=== PATIENT | female | born 1990 | race Caucasian/White ===

== ENCOUNTER 2021-11-20 15:50 | Emergency (ER) | payer OTHER, SELFPAY ==
--- NOTE | ~2021-11-20 | US_ITS ---
EXAMINATION: US PELVIS CLINICAL INFORMATION: Pelvic pain COMPARISON: CT abdomen/pelvis dated 11/20/2021 TECHNIQUE: Ultrasound of the pelvis is performed using both transabdominal and transvaginal transducers along with Doppler. Transvaginal imaging is performed due to inadequate visualization transabdominally. FINDINGS: Uterus: The uterus is anteverted and measures 7.7 x 4.3 x 5.5 cm. IUD present within the uterus. No significant endometrial thickening The uterus is smooth in contour and has normal myometrial echogenicity. No visible fibroid. Nabothian cysts present within the cervix. Adnexa: Both ovaries are visualized. There is normal color flow to the adnexa. There is no ovarian torsion. There is no pelvic ascites or fluid collection. Normal arterial and venous waveforms present within both ovaries. Right ovary measures 3.7 x 2.1 x 3.4 cm. Left ovary measures 2.6 x 2.4 x 4.1 cm. Physiologic follicles present within the left ovary. US/US pelvic and transvaginal IMPRESSION: No acute findings within the pelvis.
--- NOTE | ~2021-11-20 | US_ITS ---
EXAMINATION: US PELVIS CLINICAL INFORMATION: Pelvic pain COMPARISON: CT abdomen/pelvis dated 11/20/2021 TECHNIQUE: Ultrasound of the pelvis is performed using both transabdominal and transvaginal transducers along with Doppler. Transvaginal imaging is performed due to inadequate visualization transabdominally. FINDINGS: Uterus: The uterus is anteverted and measures 7.7 x 4.3 x 5.5 cm. IUD present within the uterus. No significant endometrial thickening The uterus is smooth in contour and has normal myometrial echogenicity. No visible fibroid. Nabothian cysts present within the cervix. Adnexa: Both ovaries are visualized. There is normal color flow to the adnexa. There is no ovarian torsion. There is no pelvic ascites or fluid collection. Normal arterial and venous waveforms present within both ovaries. Right ovary measures 3.7 x 2.1 x 3.4 cm. Left ovary measures 2.6 x 2.4 x 4.1 cm. Physiologic follicles present within the left ovary. US/US pelvic ovarian doppler IMPRESSION: No acute findings within the pelvis.
--- NOTE | ~2021-11-20 | CT_ITS ---
EXAMINATION: CT ABDOMEN AND PELVIS WITHOUT CONTRAST CLINICAL INFORMATION: Lower abdominal pain COMPARISON: None TECHNIQUE: Multidetector volumetric imaging was performed from the superior aspect of the liver through the pubic symphysis. Sagittal and coronal reformatted images were obtained on the technologist's workstation. This CT examination was performed using dose optimization techniques as appropriate, variously including the following: *Automated exposure control *Adjustment of mA and/or kV according to patient size (this includes techniques or standardized protocols for targeted exams where dose is matched to indication/reason for exam; i.e. extremities or head) *Use of iterative reconstruction technique DLP: 632 mGy-cm FINDINGS: LUNG BASES: The visualized lung bases are unremarkable. LIVER, GALLBLADDER, AND BILIARY TREE: The liver is normal in size, shape, and attenuation. No focal hepatic lesion or biliary ductal dilatation is present. The gallbladder is unremarkable with no evidence of radiopaque gallstones, gallbladder wall thickening, or obvious pericholecystic inflammatory changes. PANCREAS: Unremarkable. SPLEEN: Unremarkable. ADRENAL GLANDS: Unremarkable. KIDNEYS AND URETERS: Mild fullness of the right renal collecting system. No significant hydronephrosis. No radiodense urinary tract calculi. No renal lesions or perinephric stranding. BLADDER: Unremarkable. GASTROINTESTINAL TRACT: No dilated bowel loops. No bowel wall thickening. Appendix is not discretely visualized. No appreciable inflammatory changes at the cecal base to suggest indirect evidence of appendicitis. No ascites or free air. ABDOMINAL WALL: No significant hernia is appreciated. LYMPH NODES: No lymphadenopathy. VASCULAR: Unremarkable. PELVIC VISCERA: IUD is present in the uterus. Gynecologic structures otherwise grossly unremarkable. Trace free pelvic fluid, within the physiologic range. 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 Partially lumbarized S1 segment also noted. No fracture or suspicious osseous lesion. CT/CT abdomen pelvis wo con IMPRESSION: 1. No acute intra-abdominal process identified to explain the patient's lower abdominal pain. 2. Appendix is not discretely visualized. No inflammatory changes at the cecal base to suggest indirect evidence of acute appendicitis.
[2021-11-20 16:54] VITALS: BP 128/85; PULSE 82; RESP 20; TEMP 36.9; O2SAT 98; BMI 32.2
[2021-11-20 17:51] LABS: MANUAL DIFF FLAG NO
[2021-11-20 17:52] LABS: Basophils Percent Auto 0.4 % (0-2); Eosinophils Absolute Auto 0.2 X10*3/uL (0.0-0.4); Eosinophils Percent Auto 1.8 % (0-4); Hematocrit 36.9 % (37.0-47.0); Hemoglobin 12.5 g/dl (12.0-16.0); Imm Gran Abs Auto 0.05 X10*3/uL (0.00-0.03); Imm Gran Pct Auto 0.5 % (0.0-0.4); Lymphocytes Absolute Auto 1.3 X10*3/uL (1.2-4.9); Lymphocytes Percent Auto 11.4 % (20-40); Mean Corpuscular HGB Conc 33.9 g/dl (31.0-35.0); Mean Corpuscular Hemoglobin 28.2 pg (27.0-33.0); Mean Corpuscular Volume 83.3 fL (80.0-98.0); Monocytes Absolute Auto 0.8 X10*3/uL (0.1-1.2); Monocytes Percent Auto 7.2 % (2-11); Neutrophils Absolute Auto 8.7 x10*3/uL (2.0-8.3); Neutrophils Percent Auto 78.7 % (45-73); Platelet Count 259 X10*3/uL (160-400); Red Blood Count 4.43 X10*6/uL (4.20-5.50); Red Cell Distribution Width 12.6 % (11.0-16.0); White Blood Count 11.1 X10*3/uL (4.8-10.8)
[2021-11-20 18:23] LABS: Alanine Aminotransferase 20 U/L (0-31); Albumin Level 4.4 g/dL (3.5-5.0); Alkaline Phosphatase 72 U/L (39-117); Anion Gap 13 (12-20); Aspartate Amino Transferase 16 U/L (5-31); Bilirubin Total 0.9 mg/dL (0.0-1.0); Blood Urea Nitrogen 14 mg/dL (9-16); Calcium 9.3 mg/dL (8.4-10.2); Carbon Dioxide 21 mmol/L (22-29); Chloride 104 mmol/L (96-108); Estimated Glomerular Filt Rate > 60; Glucose Random 108 mg/dL (60-115); Potassium 3.7 mmol/L (3.3-5.1); Sodium 134 mmol/L (135-145); Total Protein 7.3 g/dL (6.5-8.0)
--- NOTE | 2021-11-20 19:24 | ED.ABDPAIN ---
HPI - Abdominal Pain General Chief Complaint: Abdominal Pain Stated Complaint: abdominal pain Time Seen by Provider: 11/20/21 19:24 Source: patient Mode of arrival: ambulatory Limitations: no limitations History of Present Illness HPI narrative: This is a 31 year old female presents to the emergency department with complaints of abdominal pain,nausea, chills,anorexia since 0600. Patient reports that the abdominal pain initially was in the epigastric region and has radiated down to her lower abdomen, she reports it is very tender with palpation, movement, she describes the pain as sharp, severe and constant in nature. She tells me she has had little to no appetite. She tells me she has no history of abdominal surgeries. Patient still has her appendix and her gallbladder. Denies any changes in urination, bowel habits, chest pain, shortness of breath, fevers, vomiting, headache, dizziness, weakness. MD elicited complaint: abdominal pain Pertinent past history: none Onset (ago): hour(s) (13) Pain Consistency: constant Location: epigastric Severity: severe Pain scale (0-10): 10 Quality: stabbing and sharp Radiation: LLQ, RLQ and suprapubic Exacerbating factors: nothing Relieving factors: nothing Associated symptoms: nausea and chills Related Data Previous Rx's Medication Instructions Recorded ondansetron 4 mg disintegrating 4 mg PO ONCE PRN nausea and 11/21/21 tablet vomiting #10 tabs Allergies Allergy/AdvReac Type Severity Reaction Status Date / Time animal dander [ANIMAL HAIR] Allergy Unknown PUFFY EYES Verified 11/20/21 16:54 surgical lubricant Allergy Unknown RASH Verified 11/20/21 16:54 [From SURGILUBE] Vaginal Lubricant Allergy Unknown rash, itchy Uncoded 09/25/17 00:00 Review of Systems Review of Systems Constitutional : No Weight loss, No Fever, + Chills, No Fatigue, No Malaise ENT/Mouth : No sore throat, No Rhinorrhea Eyes: No Eye Pain, No Swelling, No Redness Cardiovascular : No Chest Pain, No SOB, No Dyspnea on Exertion, No Orthopnea, No Edema, No Palpitations Respiratory : No Cough, No Sputum, No Wheezing Gastrointestinal : + Nausea, No Vomiting, No Diarrhea, No Constipation, + abdominal Pain, No Hematochezia, No Melena Genitourinary : No Dysuria, No Urinary Frequency, No Hematuria, Musculoskeletal : No joint pain, No Myalgias, No Joint Swelling Skin : No Skin Lesions, No rash Neuro : No Weakness, No Numbness, No Dizziness, No Headache Psych : No Anxiety/Panic, No Depression All other systems reviewed and are negative Yes all other systems are reviewed and are negative [facility] Past Medical History Attestation statement: The following information was validated with the patient. Source: old records reviewed and nursing notes reviewed Social History Social History Advance Directives: No Advance Directives Information Provided: No Physical Exam ED Vital Signs: Vital Signs - 24 hr 11/20/21 16:54 Temperature 98.4 F Pulse Rate 82 Respiratory Rate 20 Blood Pressure 128/85 Pulse Oximetry 98 Oxygen Delivery Method Room Air BMI result Body Mass Index 32.2 vss Appearance: Alert.? Oriented X3.? No acute distress.? Head: Normocephalic, atraumatic, no step-offs or deformities Eyes: Pupils equal, round and reactive to light.? ENT: Pharynx normal.? Neck: Normal inspection.? Neck supple.? CVS: Normal heart rate and rhythm.? Pulses normal.? Respiratory: No respiratory distress.? Breath sounds normal.? Abdomen: Soft and + severe tenderness to lower abdomen. BS normal X4.? Skin: Skin warm and dry.? Normal skin color.? Normal skin turgor.? Extremities: No lower extremity edema.? No calf ttp. 5/5 strength to bilateral upper and lower extremities Neuro: Oriented X 3.? No motor deficit.? No sensory deficit. CN 2-12 intact Course Reevaluation(s) Reevaluation #1: CBC with slight leukocytosis. Chemistry with no acute findings. Lactic acid negative. UA without signs of infection. CT of the abdomen and pelvis with no acute intra-abdominal process is identified to explain patient's symptoms. Appendix is not discretely visualized, however no inflammatory changes at the cecal base to suggest indirect evidence of acute appendicitis. Time: 22:53 Reevaluation #2: Ultrasound with no acute findings. Patient now reporting thick white vaginal discharge which is abnormal for her. No suspicion for STDs, urine shows slightly. Will treat with fluconazole 150 mg p.o. now. Time: 00:30 Reevaluation #3: Upon re-evaluation patient is much less tender than before, she reports significant improvement, still some discomfort with palpation of abdomen throughout. Will give 0.5 of Dilaudid, ultrasound within normal limits, no signs of torsion. Low suspicion for appendicitis CRP not markedly elevated. I explained to patient if symptoms persist or worsen she should return for further evaluation. At this time patient reports to me that her pain has significantly improved and she feels well enough to go home. Educated her on worrisome signs and symptoms and when to return. I also discussed this case my attending who agrees with plan. At time of discharge patient tolerating p.o. fluids. Time: 00:58 MDM - Abdominal Pain MDM Narrative Medical decision making narrative: 1998 31-year-old female presenting with severe abdominal pain started in the epigastric region radiated to the lower abdomen since 06:00. Physical examination with his significantly tender abdomen , patient appears very uncomfortable. Plan at this time is to obtain lab work, imaging, urine. Will rule out appendicitis, cholecystitis, diverticulitis. History and physical examination was low suspicion for torsion. Medical Records Attestation: I reviewed the patient's medical records. Lab Data Attestation: I reviewed the patient's lab results. Result diagrams: 11/20/21 17:47 11/20/21 17:47 Labs: Lab Results 11/20/21 11/20/21 11/20/21 Range/Units 17:47 17:47 21:43 WBC 11.1 H (4.8-10.8) X10*3/uL RBC 4.43 (4.20-5.50) X10*6/uL Hgb 12.5 (12.0-16.0) g/dl Hct 36.9 L (37.0-47.0) % MCV 83.3 (80.0-98.0) fL MCH 28.2 (27.0-33.0) pg MCHC 33.9 (31.0-35.0) g/dl RDW 12.6 (11.0-16.0) % Plt Count 259 (160-400) X10*3/uL MPV 10.0 (9.4-12.3) fL Immature Gran % (Auto) 0.5 H (0.0-0.4) % Neut % (Auto) 78.7 H (45-73) % Lymph % (Auto) 11.4 L (20-40) % [place] % (Auto) 7.2 (2-11) % Eos % (Auto) 1.8 (0-4) % Baso % (Auto) 0.4 (0-2) % Lymph # (Auto) 1.3 (1.2-4.9) X10*3/uL [place] # (Auto) 0.8 (0.1-1.2) X10*3/uL Eos # (Auto) 0.2 (0.0-0.4) X10*3/uL Baso # (Auto) 0.0 (0.0-0.2) X10*3/uL Abs Immat Gran (auto) 0.05 H (0.00-0.03) X10*3/uL Absolute Neuts (auto) 8.7 H (2.0-8.3) x10*3/uL Absolute Nucleated RBC 0.000 (0.0-0.012) X10*3/uL Nucleated RBC % (auto) 0.0 (0.0-0.2) /100WBC Sodium 134 L (135-145) mmol/L Potassium 3.7 (3.3-5.1) mmol/L Chloride 104 (96-108) mmol/L Carbon Dioxide 21 L (22-29) mmol/L Anion Gap 13 (12-20) BUN 14 (9-16) mg/dL Creatinine 0.62 (0.5-1.4) mg/dL Estim Creat Clear Calc 121.0 Estimated GFR > 60 Random Glucose 108 (60-115) mg/dL Lactic Acid 0.7 (0.5-2.0) mmol/L Calcium 9.3 (8.4-10.2) mg/dL Total Bilirubin 0.9 (0.0-1.0) mg/dL AST 16 (5-31) U/L ALT 20 (0-31) U/L Alkaline Phosphatase 72 (39-117) U/L C-Reactive Protein 0.53 H (< or = 0.50) mg/dL Total Protein 7.3 (6.5-8.0) g/dL Albumin 4.4 (3.5-5.0) g/dL Beta HCG, Quant < 2 mIU/mL Urine Color Urine Appearance Urine pH (5.0-8.0) Ur Specific [place] (1.005-1.025) Urine Protein (NEG-TRACE) MG/DL Urine Glucose (UA) (NEG) MG/DL Urine Ketones (NEG) MG/DL Urine Blood (NEG) Urine Nitrite (NEG) Ur Leukocyte Esterase (NEG) Urine RBC (0) /HPF Urine WBC (0-4) /HPF Ur Squamous Epith Cells /LPF Calcium Oxalate Crystal /LPF Urine Bacteria /LPF Urine Yeast /HPF 11/20/21 Range/Units 21:51 WBC (4.8-10.8) X10*3/uL RBC (4.20-5.50) X10*6/uL Hgb (12.0-16.0) g/dl Hct (37.0-47.0) % MCV (80.0-98.0) fL MCH (27.0-33.0) pg MCHC (31.0-35.0) g/dl RDW (11.0-16.0) % Plt Count (160-400) X10*3/uL MPV (9.4-12.3) fL Immature Gran % (Auto) (0.0-0.4) % Neut % (Auto) (45-73) % Lymph % (Auto) (20-40) % [place] % (Auto) (2-11) % Eos % (Auto) (0-4) % Baso % (Auto) (0-2) % Lymph # (Auto) (1.2-4.9) X10*3/uL [place] # (Auto) (0.1-1.2) X10*3/uL Eos # (Auto) (0.0-0.4) X10*3/uL Baso # (Auto) (0.0-0.2) X10*3/uL Abs Immat Gran (auto) (0.00-0.03) X10*3/uL Absolute Neuts (auto) (2.0-8.3) x10*3/uL Absolute Nucleated RBC (0.0-0.012) X10*3/uL Nucleated RBC % (auto) (0.0-0.2) /100WBC Sodium (135-145) mmol/L Potassium (3.3-5.1) mmol/L Chloride (96-108) mmol/L Carbon Dioxide (22-29) mmol/L Anion Gap (12-20) BUN (9-16) mg/dL Creatinine (0.5-1.4) mg/dL Estim Creat Clear Calc Estimated GFR Random Glucose (60-115) mg/dL Lactic Acid (0.5-2.0) mmol/L Calcium (8.4-10.2) mg/dL Total Bilirubin (0.0-1.0) mg/dL AST (5-31) U/L ALT (0-31) U/L Alkaline Phosphatase (39-117) U/L C-Reactive Protein (< or = 0.50) mg/dL Total Protein (6.5-8.0) g/dL Albumin (3.5-5.0) g/dL Beta HCG, Quant mIU/mL Urine Color YELLOW Urine Appearance CLEAR Urine pH 6.0 (5.0-8.0) Ur Specific [place] >= 1.030 H (1.005-1.025) Urine Protein NEG (NEG-TRACE) MG/DL Urine Glucose (UA) NEG (NEG) MG/DL Urine Ketones NEG (NEG) MG/DL Urine Blood 1+ H (NEG) Urine Nitrite NEG (NEG) Ur Leukocyte Esterase NEG (NEG) Urine RBC 0-2 (0) /HPF Urine WBC 0 (0-4) /HPF Ur Squamous Epith Cells 1+ /LPF Calcium Oxalate Crystal 1+ /LPF Urine Bacteria 1+ /LPF Urine Yeast TRACE /HPF Critical Care Time Critical Care Time Critical Care Time: No Discharge Plan Discharge Clinical Impression: Abdominal pain, Yeast infection Patient Disposition: Home, Self-Care Instructions: Abdominal Pain (ED), Warm Compress or Soak (ED) Additional Instructions: Take your medications as prescribed. If you were prescribed antibiotics today, it is important that you take your medication to their entirety, do not skip any doses, do not finish them early. Follow-up with your primary care provider this week. Follow-up with GI if pain persists. Return to the emergency department with new or worsening symptoms. Such as fevers, chills, chest pain, shortness of breath, nausea, vomiting, dizziness, headache, vision changes, lethargy, not eating or drinking In case of emergency call 911 Your labs were reassuring. Estradaan has been sent to your pharmacy please take this as prescribed for nausea or vomiting. Do not take more than the prescribed doses this can cause adverse effects. CT/CT abdomen pelvis wo con IMPRESSION: ? US/US pelvic and transvaginal IMPRESSION: 1. No acute intra-abdominal process identified to explain the patient's lower abdominal pain. 2. Appendix is not discretely visualized. No inflammatory changes at the cecal base to suggest indirect evidence of acute appendicitis.? Both ovaries are visualized. There is normal color flow to the adnexa. There is no ovarian torsion.? There is no pelvic ascites or fluid collection. Normal arterial and venous waveforms present within both ovaries. Right ovary measures 3.7 x 2.1 x 3.4 cm. Left ovary measures 2.6 x 2.4 x 4.1 cm. Physiologic follicles present within the left ovary. No acute findings within the pelvis. Prescriptions: New ondansetron 4 mg tablet,disintegrating 4 mg PO ONCE PRN (Reason: nausea and vomiting) Qty: 10 0RF Referrals: Rhea Calvillo [Primary Care Provider] - 2 days Stand Alone Forms: Work/School Release
[2021-11-20 20:23] LABS: HCG Quantitative < 2 mIU/mL
[2021-11-20 21:59] LABS: Appearance Urine CLEAR; Color Urine YELLOW; Glucose Urine UA NEG (NEG); Leukocyte Esterase Urine NEG (NEG); Nitrite Urine NEG (NEG); Specific Gravity - Urine >= 1.030 (1.005-1.025); UACC Culture Trigger NO; Urine Blood 1+ (NEG); Urine Ketones NEG (NEG); Urine Protein NEG (NEG-TRACE)
[2021-11-20 22:13] LABS: Bacteria Urine 1+ /LPF; Calcium Oxalate Crystals Urine 1+ /LPF; RBC Urine 0-2 /HPF (0); Squamous Epithelial Cell Urine 1+ /LPF; WBC Urine 0 /HPF (0-4)
[2021-11-20 22:14] LABS: Lactic Acid 0.7 mmol/L (0.5-2.0)
[2021-11-20] MEDS: Morphine Sulfate 4 MG/ML CARTRIDGE IVPUSH (22:28)
[2021-11-21] MEDS: 0.9 % Sodium Chloride 1,000 ML 999 ML IV (00:43)
[2021-11-21 00:53] LABS: C Reactive Protein 0.53 mg/dL (< or = 0.50)
[2021-11-21] MEDS: Fluconazole 150 MG TABLET PO (01:19)
[2021-11-21] MEDS: HYDROmorphone HCl 0.5 MG/0.5 ML SYRINGE IVPUSH (01:19)
[2021-11-21 01:27] VITALS: BP 105/47; PULSE 76; RESP 16; TEMP 36.8; O2SAT 95
== END 2021-11-21 01:35 | disposition home or self-care (01) ==
PROVIDERS: Emergency Medicine; Physician Assistant; Emergency Provider Emergency Medicine; PCP Nurse Practitioner
DX: R10.9 Unspecified abdominal pain (principal); B37.3 Candidiasis of vulva and vagina
CPT/HCPCS: 36415; 74176; 76830; 76856; 80053; 81001; 81003; 83605; 84702; 85025; 86140; 87040; 93975; 96361; 96374; 96375; 99284; J1170; J2270

== ENCOUNTER 2022-11-02 15:09 | Outpatient (REF) | payer OTHER, SELFPAY ==
[2022-11-03 12:39] LABS: BV Int Neg Control Negative (Negative); BV Int Pos Control Positive (Positive)
[2022-11-03 13:43] LABS: CT PCR NOT DETECTED (Not Detect.); NG PCR NOT DETECTED (Not Detect.)
[2022-11-11 03:19] LABS: HPV mRNA E6/E7 rflx Not Detected (Not Detected)
== END 2022-11-02 15:10 | disposition home or self-care (01) ==
LOC: HO.CHCLNP 15:09
PROVIDERS: Visit Provider Pediatrics
DX: Z01.419 Encounter for gynecological examination (general) (routine) without abnormal findings (principal); Z20.2 Contact with and (suspected) exposure to infections with a predominantly sexual mode of transmission
CPT/HCPCS: 0353U; 87480; 87510; 87624; 87660; 88142

== ENCOUNTER 2022-11-07 13:48 | Outpatient (REF) | payer OTHER, SELFPAY ==
--- NOTE | ~2022-11-07 | US_ITS ---
EXAMINATION: US PELVIS CLINICAL INFORMATION: Dyspareunia COMPARISON: Previous pelvic ultrasound and abdominal and pelvic CT October 2021 TECHNIQUE: Ultrasound of the pelvis is performed using both transabdominal and transvaginal transducers along with Doppler. Transvaginal imaging is performed due to inadequate visualization transabdominally. FINDINGS: The uterus is anteverted and measures 8.4 x 4.8 x 5.7 cm in dimension. There is a focal hypoechoic lesion in the right uterine fundus suggestive of a fibroid measuring 1.3 x 0.7 x 1 cm. There is an IUD in the uterus in satisfactory position. The endometrium does not appear thickened measuring 1.2 cm. The right ovary is normal in measures 2.1 x 2.4 x 1.8 cm. Left ovary is slightly enlarged measuring 4.7 x 5 x 4.5 cm. There is a 4 x 3.3 x 4.5 cm simple left ovarian cyst. No imaging follow-up recommended. There is no fluid in the pelvis. US/US pelvic and transvaginal IMPRESSION: IUD in the uterus in satisfactory position. Question small right fundal uterine fibroid. 4 cm left ovarian cyst. No imaging follow-up recommended.
== END 2022-11-07 13:49 | disposition home or self-care (01) ==
LOC: HO.US 13:48
PROVIDERS: PCP Pediatrics; Visit Provider Pediatrics
DX: N93.0 Postcoital and contact bleeding (principal)
CPT/HCPCS: 76830; 76856

== ENCOUNTER 2023-03-15 18:26 | Emergency (ER) | payer OTHER, SELFPAY ==
[2023-03-15 18:55] VITALS: BP 128/81; PULSE 91; RESP 18; TEMP 37.3; O2SAT 96; BMI 34.2
--- NOTE | 2023-03-15 19:07 | ED_ITS ---
HPI - Skin/Abscess/Foreign Bdy General Chief complaint: Skin/Abscess/Foreign Body Stated complaint: skin reaction Time Seen by Provider: 03/15/23 20:02 History of Present Illness HPI narrative: The patient presents for evaluation of skin lesions that she 1st noticed about 24 hours ago. First noticed a lesion on her left upper arm that she thought might be a spider bite. She subsequently noticed a lesion on her right upper arm, another on the dorsum of the right hand, another on her right chest, and another near the Achilles tendon of the right leg. This is not been associated with any fever. She does not consider herself likely to be exposed to tick bites. She does have reptiles at home but she has not been bitten by any of her animals. She is lives with her . Her has no unusual skin lesions. She is quite certain she is not . She has an IUD. She is on no regular prescription medications. Related Data Previous Rx's Medication Instructions Recorded ondansetron 4 mg disintegrating 4 mg PO ONCE PRN nausea and 11/21/21 tablet vomiting #10 tabs doxycycline monohydrate 100 mg 100 mg PO BID 14 days #28 caps 03/15/23 capsule Allergies Allergy/AdvReac Type Severity Reaction Status Date / Time animal dander [ANIMAL HAIR] Allergy Unknown PUFFY EYES Verified 03/15/23 19:00 surgical lubricant Allergy Unknown RASH Verified 03/15/23 19:00 [From SURGILUBE] Vaginal Lubricant Allergy Unknown rash, itchy Uncoded 09/25/17 00:00 Review of Systems 2 Review of Systems: Yes all other systems are reviewed and are negative PMFSH Social History Advance Directives: No Advance Directives Information Provided: No Physical Exam 2 Vital Signs: Vital Signs: Last Vital Signs Temp 99.1 F 03/15/23 18:55 Pulse 91 03/15/23 18:55 Resp 18 03/15/23 18:55 BP 128/81 03/15/23 18:55 Pulse Ox 96 03/15/23 18:55 O2 Del Method Room Air 03/15/23 18:55 BMI result Body Mass Index 34.2 Const: Other: The patient is awake, alert, pleasant, cooperative. She is not appear acutely ill or toxic. HEENT: Other: There is very subtle lesion to the skin of the right temporal face. There is some very mild swelling and erythema and mild tenderness. The borders of this lesion are very indistinct. Otherwise the face is unremarkable. The pharynx is normal. Eyes: Other: Pupils are round equal, conjunctivae are clear, extraocular movements are intact Neck: Other: No neck lesions. She moves her neck easily. No adenopathy. Resp: Other: Lungs are clear bilaterally Cardio: Other: The patient has regular rate and rhythm no murmur Skin: Other: The patient has several areas of skin lesions. Several of these lesions are oval in shape and several cm across. Lesions mildly raised and mildly erythematous. She has lesions on the left upper arm, the right upper arm, the dorsum of the right hand, the right side of her chest, and on the skin overlying the Achilles tendon of the right ankle. Neuro: Other: The patient is awake, alert, pleasant, cooperative, nontoxic, neurologically intact. Extrem: Other: The patient has skin lesions on her extremities but has no difficulty moving any of the joints of any of the extremities. Course Course Course Narrative: This is a rapid medical exam. Defer additional HPI, ROS, PE to prior provider. 33-year-old female here with itching rash diffusely. No airway involvement. Vitals stable Medical Decision Making Medical Decision Making MDM Narrative: The patient presents with unusual skin lesions. My initial impression was that the color and shape of the lesion on the left upper arm might possibly represent erythema migrans but lesion is slightly more indurated than I would expect from erythema migrans. Additionally the patient does not seem to be high risk for tick bite exposures. Patient has unremarkable labs. Clinically she looks well. I have sent a Lyme screen. Clinically the patient looks well enough for outpatient management. I do not think this is erythema nodosum. She was put on a course of doxycycline. She should follow up with her regular doctor. Lab Data 03/15/23 20:22 03/15/23 20:22 Labs: Lab Results 03/15/23 Range/Units 20:22 WBC 8.8 (4.8-10.8) X10*3/uL RBC 4.66 (4.20-5.50) X10*6/uL Hgb 12.6 (12.0-16.0) g/dl Hct 38.3 (37.0-47.0) % MCV 82.2 (80.0-98.0) fL MCH 27.0 (27.0-33.0) pg MCHC 32.9 (31.0-35.0) g/dl RDW 13.8 (11.0-16.0) % Plt Count 277 (160-400) X10*3/uL MPV 9.7 (9.4-12.3) fL Immature Gran % (Auto) 0.3 (0.0-0.4) % Neut % (Auto) 56.9 (45-73) % Lymph % (Auto) 28.0 (20-40) % [place] % (Auto) 8.3 (2-11) % Eos % (Auto) 5.8 H (0-4) % Baso % (Auto) 0.7 (0-2) % Lymph # (Auto) 2.5 (1.2-4.9) X10*3/uL [place] # (Auto) 0.7 (0.1-1.2) X10*3/uL Eos # (Auto) 0.5 H (0.0-0.4) X10*3/uL Baso # (Auto) 0.1 (0.0-0.2) X10*3/uL Abs Immat Gran (auto) 0.03 (0.00-0.03) X10*3/uL Absolute Neuts (auto) 5.0 (2.0-8.3) x10*3/uL Absolute Nucleated RBC 0.000 (0.0-0.012) X10*3/uL Nucleated RBC % (auto) 0.0 (0.0-0.2) /100WBC ESR 8 (0-20) MM/HR Sodium 141 (135-145) mmol/L Potassium 3.5 (3.3-5.1) mmol/L Chloride 109 H (96-108) mmol/L Carbon Dioxide 26 (22-29) mmol/L Anion Gap 10 L (12-20) BUN 14 (9-16) mg/dL Creatinine 0.76 (0.5-1.4) mg/dL Estim Creat Clear Calc 100.0 Estimated GFR > 60 Random Glucose 102 (60-115) mg/dL Calcium 9.3 (8.4-10.2) mg/dL Total Bilirubin 0.6 (0.0-1.0) mg/dL Direct Bilirubin 0.2 (0.0-0.5) mg/dL AST 16 (5-31) U/L ALT 17 (0-31) U/L Alkaline Phosphatase 67 (39-117) U/L C-Reactive Protein 0.25 (< or = 0.50) mg/dL Total Protein 7.3 (6.5-8.0) g/dL Albumin 4.1 (3.5-5.0) g/dL Discharge Plan Discharge Clinical Impression: Skin lesions Patient Disposition: Home, Self-Care Additional Instructions: The exact nature of the skin lesions you are experiencing is not clear. Your blood testing today is very reassuring. An additional test for Lyme disease is pending. In the meantime please take the antibiotic doxycycline as prescribed. Take this 2 times a day, proximally every 12 hours. Please plan on following up with the regular doctor next week for a 2nd opinion and re-evaluation. Return to the emergency room if he feels significantly worse at any time Prescriptions: New doxycycline monohydrate 100 mg capsule 100 mg PO BID 14 Days Qty: 28 0RF No Action ondansetron 4 mg tablet,disintegrating 4 mg PO ONCE PRN (Reason: nausea and vomiting) Qty: 10 0RF Referrals: Dana Cespedes MD [Primary Care Provider] - (Follow-up for evaluation of skin lesions)
--- NOTE | 2023-03-15 19:31 | PC.NURSE ---
pt reports several red round rashes. on outer left and right upper arms. rashes are warm to the touch. pt said one appeared yesterday and she thoght it was an insect on spider bite. Today, patches appears on right arm and right rib area.
[2023-03-15 20:29] LABS: MANUAL DIFF FLAG NO
[2023-03-15 20:32] LABS: Basophils Absolute Auto 0.1 X10*3/uL (0.0-0.2); Basophils Percent Auto 0.7 % (0-2); Eosinophils Absolute Auto 0.5 X10*3/uL (0.0-0.4); Eosinophils Percent Auto 5.8 % (0-4); Hematocrit 38.3 % (37.0-47.0); Hemoglobin 12.6 g/dl (12.0-16.0); Imm Gran Abs Auto 0.03 X10*3/uL (0.00-0.03); Imm Gran Pct Auto 0.3 % (0.0-0.4); Lymphocytes Absolute Auto 2.5 X10*3/uL (1.2-4.9); Mean Corpuscular HGB Conc 32.9 g/dl (31.0-35.0); Mean Corpuscular Volume 82.2 fL (80.0-98.0); Mean Platelet Volume 9.7 fL (9.4-12.3); Monocytes Absolute Auto 0.7 X10*3/uL (0.1-1.2); Monocytes Percent Auto 8.3 % (2-11); Neutrophils Percent Auto 56.9 % (45-73); Platelet Count 277 X10*3/uL (160-400); Red Blood Count 4.66 X10*6/uL (4.20-5.50); Red Cell Distribution Width 13.8 % (11.0-16.0); White Blood Count 8.8 X10*3/uL (4.8-10.8)
[2023-03-15 20:46] LABS: Alanine Aminotransferase 17 U/L (0-31); Albumin Level 4.1 g/dL (3.5-5.0); Alkaline Phosphatase 67 U/L (39-117); Anion Gap 10 (12-20); Aspartate Amino Transferase 16 U/L (5-31); Bilirubin Direct 0.2 mg/dL (0.0-0.5); Bilirubin Total 0.6 mg/dL (0.0-1.0); Blood Urea Nitrogen 14 mg/dL (9-16); C Reactive Protein 0.25 mg/dL (< or = 0.50); Calcium 9.3 mg/dL (8.4-10.2); Carbon Dioxide 26 mmol/L (22-29); Chloride 109 mmol/L (96-108); Estimated Glomerular Filt Rate > 60; Glucose Random 102 mg/dL (60-115); Potassium 3.5 mmol/L (3.3-5.1); Sodium 141 mmol/L (135-145); Total Protein 7.3 g/dL (6.5-8.0)
[2023-03-15 21:20] LABS: Erythrocyte Sedimentation Rate 8 MM/HR (0-20)
[2023-03-15] MEDS: Doxycycline Monohydrate 100 MG CAPSULE PO (22:04)
[2023-03-15 22:05] VITALS: BP 123/71; PULSE 95; RESP 14
[2023-03-17 17:04] LABS: Lyme Abs Screen <0.90 index
== END 2023-03-15 22:10 | disposition home or self-care (01) ==
PROVIDERS: Emergency Provider Emergency Medicine; PCP Pediatrics
DX: L98.9 Disorder of the skin and subcutaneous tissue, unspecified (principal); R21 Rash and other nonspecific skin eruption
CPT/HCPCS: 36415; 80048; 80076; 85025; 85652; 86140; 86617; 86618; 99283; 99284

== ENCOUNTER 2023-06-27 10:58 | Outpatient (AMB) | payer OTHER, SELFPAY ==
[2023-06-27 11:04] VITALS: BP 100/68; BMI 33.6
--- NOTE | 2023-06-27 11:04 | A.OFFVIS_ITS ---
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 The patient is on ParaGard IUD for the last 6 years [facility] Medical History Asthma Surgical History Hx of section Family History Maternal Grandmother Bladder cancer Maternal Grandfather ALS (amyotrophic lateral sclerosis) Social History Use of substances other than those prescribed or required for medical reasons: Yes Substance Use Type: Marijuana Female Reproductive History Menstrual Age of Menarche: 14 Duration of menses: 6-7 days Date of last menstrual period: 06/07/23 control method: copper IUCD Total pregnancies: 2 Full term: 2 Number of Living Children: 2 Date of last pap smear: 11/07/22 (negative) History of abnormal pap smear: No Review of Systems Const All systems reviewed & are unremarkable except as noted in HPI and below Reports as per HPI and Reports no additional complaints GI Reports no additional complaints Reports no additional complaints Physical Exam Vital Signs: Last Vital Signs BP 100/68 06/27/23 11:04 BMI result Body Mass Index 33.6 Assessment & Plan Assessment & Plan (1) Family planning: Code(s): Z30.09 - Encounter for other general counseling and advice on contraception Plan: Discussed with the patient the different options of control including control pills/Nuvaring, DMPA, different types of IUD ?s, sterilization. All the pros, cons, risks and benefits of each were discussed with the patient. The patient decided to stay on ParaGard IUD, so a more detailed discussion was carried on including types (Progesterone, Copper), mechanism of action, risks (infection, uterine perforation, failure with ectopic , septic AB, dysmenorrhea with Paraguard, others) benefits (efficient contraceptive method, hypo menorrhea with Progesterone IUD, others) , the patient was asked to call da veronique one of next cycle for Mirena IUD insertion in case she decided to proceed with Mirena instead of ParaGard IUD. All questions answered, the patient verbalized understanding Coding Level of Care Code New Pt Level 3 (57268) Diagnoses Family planning Z30.09
== END 2023-06-27 11:26 | disposition home or self-care (01) ==
LOC: HO.HWS 10:59
PROVIDERS: PCP Pediatrics; Visit Provider Obstetrics & Gynecology
DX: Z30.09 Encounter for other general counseling and advice on contraception (principal)
CPT/HCPCS: 99203

== ENCOUNTER → 2023-06-27 10:58 | Outpatient (BNVA) | payer OTHER, SELFPAY | PROVIDERS: PCP Pediatrics; Visit Provider Obstetrics & Gynecology | DX: Z30.09 Encounter for other general counseling and advice on contraception (principal) | CPT/HCPCS: 99202 ==

== ENCOUNTER 2024-11-19 20:43 | Emergency (ER) | payer OTHER, SELFPAY ==
--- NOTE | ~2024-11-19 | CT_ITS ---
CLINICAL HISTORY: Yoshi hematuria CT abdomen and pelvis without contrast Comparison: CT/SR - CT ABDOMEN PELVIS WITHOUT IV CONTRAST - 11/20/21 21:05 EDT Findings: The lung bases are clear. The liver, gallbladder, pancreas, spleen, adrenal glands, and kidneys are unremarkable. There is no urolithiasis or hydronephrosis. The bladder is unremarkable. The appendix is not visualized. The gastrointestinal tract is otherwise unremarkable. There is no free fluid or free air. There are no enlarged lymph nodes. The aorta is normal in diameter. There is an intrauterine device which appears to be in appropriate position. There is no fracture or suspicious lytic or sclerotic lesion. IMPRESSION: No acute abnormality in the abdomen or pelvis. This document has been electronically signed by: Sin Smiley MD on 11/20/2024 01:14:14
[2024-11-19 21:23] VITALS: BP 115/59; PULSE 89; RESP 18; TEMP 36.8; O2SAT 97; BMI 31.0
[2024-11-19 21:49] LABS: MANUAL DIFF FLAG NO
[2024-11-19 21:50] LABS: Hematocrit 36.8 % (37.0-47.0); Hemoglobin 12.7 g/dl (12.0-16.0); Imm Gran Abs Auto 0.05 X10*3/uL (0.00-0.03); Imm Gran Pct Auto 0.3 % (0.0-0.4); Lymphocytes Absolute Auto 2.3 X10*3/uL (1.2-4.9); Mean Corpuscular HGB Conc 34.5 g/dl (31.0-35.0); Mean Corpuscular Hemoglobin 29.5 pg (27.0-33.0); Mean Corpuscular Volume 85.6 fL (80.0-98.0); NRBC Abs Auto 0.000 X10*3/uL (0.0-0.012); NRBC Pct Auto 0.0 /100WBC (0.0-0.2); Platelet Count 297 X10*3/uL (160-400); Red Blood Count 4.30 X10*6/uL (4.20-5.50); White Blood Count 14.7 X10*3/uL (4.8-10.8)
[2024-11-19 21:52] LABS: Appearance Urine Cloudy; Glucose Urine UA Negative (Negative); PH 6.0 (5.0-9.0); Specific Gravity - Urine 1.020 (1.005-1.025); UMIC TRIGGER UACC YES
[2024-11-19 21:53] LABS: UPreg QC Valid YES
[2024-11-19 21:55] LABS: UACC Culture Trigger YES
[2024-11-19 22:04] LABS: Alanine Aminotransferase 25 U/L (0-31); Albumin Level 4.5 g/dL (3.5-5.0); Alkaline Phosphatase 68 U/L (39-117); Anion Gap 13 (12-20); Aspartate Amino Transferase 23 U/L (5-31); Blood Urea Nitrogen 17 mg/dL (9-16); Calcium 9.1 mg/dL (8.4-10.2); Carbon Dioxide 25 mmol/L (22-29); Chloride 106 mmol/L (96-108); Creatinine Clr Calc Pharmacy 106.8; Estimated Glomerular Filt Rate > 60; Potassium 3.8 mmol/L (3.3-5.1); Sodium 140 mmol/L (135-145); Total Protein 7.3 g/dL (6.5-8.0)
[2024-11-19 22:49] VITALS: BP 131/83; PULSE 94; RESP 20; TEMP 36.8; O2SAT 97
--- OUTSIDE RECORDS SUMMARY | 2024-11-19 22:55 | XMS_ITS | Encounter Summary ---
Demographics Address [address] [place] [address] Work Phone Home Phone Mobile Phone Preferred Language en Marital Status Single Cheondoism Affiliation Unknown Race White Ethnic Group Unknown Author Organization [employer] Address [address] [place] [address] Care Team Providers Care Crystal Grinder Name Role Phone Dana Cespedes MD Primary Care Provider [phone] Dana Cespedes MD Primary Care Provider [phone] Reason for Visit * Reason Onset Date Comments New Patient Appt 09/09/2022 Encounter Details Date Type Department Care Team ([facility] st Contact Info) Description 09/09/2022 Telephone [facility] [address] [place], [place] [id number] Dana Cespedes MD [address] [place] [address] New Patient Appt Social History Tobacco Use Types Packs/Day Years Used Date Smoking Tobacco: Never Assessed Comments Unknown Sex and Gender Information Value Date Recorded Sex Assigned at Female 02/21/2022 10:17 AM EDT Legal Sex Female 10:17 AM EDT Gender Identity Female 02/21/2022 10:17 AM EDT Sexual Orientation Bisexual 10/06/2022 4: 25 PM EDT documented as of this encounter Miscellaneous Notes * Telephone Encounter - Era Gonsalves - 09/09/2022 1:11 PM EDT PAR Era Parry called pt to Offer PLANT PRODUCTION MANAGER appt. Pt demographics and insurance information were verified. Pt reports previous care at [facility] in [place] with PCP Dagoberto Rossi. Pt reports the following medical conditions: Asthma, Depression, PTSD. Pt is currently takes medication of Ibuprofen, Albuterol, Claritin. Pt given PLANT PRODUCTION MANAGER appt with on 10/06/2022 @ 9:[address] Cespedes. Pt will be sentappt reminder card and medical release form and agrees to complete and to return to medical recordsprior to PLANT PRODUCTION MANAGER appt. documented in this encounter Plan of Treatment Not on file documented as of this encounter Visit Diagnoses Not on filedocumented in this encounter Care Teams Crystal Grinder Relationship Specialty Start Date End Date Dana Cespedes MD [address] [place] [address] PCP - General Internal Medicine 09/09/22 09/21/22 Dana Cespedes MD [address] [place] [address] PCP - General Internal Medicine 10/06/22 documented as of this encounter
--- NOTE | 2024-11-19 23:30 | ED.FEMALEGU ---
HPI - Female Genitourinary General Chief complaint: Urogenital-Female Stated complaint: urinating blood Time Seen by Provider: 11/19/24 23:19 Source: patient Mode of arrival: ambulatory Limitations: no limitations History of Present Illness ED Provider: HPI Narrative: Patient with no significant past medical history been having tiffanie hematuria sometimes with clots since yesterday with frequency and urgency also complaining of low back pain no flank pain no nausea no vomiting no fever no chills no history of kidney stone in the past never had similar symptoms in the past Related Data Home Medications ?Medication ?Instructions ?Recorded ?Confirmed albuterol sulfate 90 mcg/actuation inhalation 06/27/23 aerosol inhaler (Ventolin HFA) copper 380 square mm intrauterine intrauterine 06/27/23 device (ParaGard T 380A) ibuprofen 200 mg capsule 200 mg PO Q6H PRN 06/27/23 Previous Rx's ?Medication ?Instructions ?Recorded cefuroxime axetil 250 mg tablet 250 mg PO BID 7 days #14 tabs 11/20/24 phenazopyridine 200 mg tablet 200 mg PO TID 2 days #6 tabs 11/20/24 (Pyridium) Allergies Allergy/AdvReac Type Severity Reaction Status Date / Time animal dander (ANIMAL HAIR) Allergy Unknown PUFFY EYES Verified 11/19/24 21:27 surgical lubricant (From Allergy Unknown RASH Verified 11/19/24 21:27 SURGILUBE) Vaginal Lubricant Allergy Unknown rash, itchy Uncoded 11/19/24 21:27 Review of Systems Review of Systems: Yes all other systems are reviewed and are negative PMFSH Past Medical History Medical History Asthma Surgical History Hx of section Family History Family History Maternal Grandmother Bladder cancer Maternal Grandfather ALS (amyotrophic lateral sclerosis) Social History Social History Substance Use Type: Marijuana Advance Directives: No Advance Directives Information Provided: No Patient : No Physical Exam Vital Signs: Vital Signs: Last Vital Signs Temp 98.2 F 11/20/24 01:36 Pulse 92 11/20/24 01:36 Resp 16 11/20/24 01:36 BP 127/51 L 11/20/24 01:36 Pulse Ox 97 11/20/24 01:36 O2 Del Method Room Air 11/20/24 01:36 BMI result Body Mass Index 31.0 Appearance: Alert. Oriented X3. No acute distress. Eyes: no pallor or icterus ENT: Pharynx normal Oral Mucosa moist tympanic membrane intact no erythema, Neck: Normal inspection. Neck supple. CVS: Normal heart rate and rhythm. Pulses normal. Respiratory: No respiratory distress. Equal air entry bilateral, no wheezing/rales/rhonchi Abd: soft, not tender no CVA tenderness Skin: Skin warm and dry. Normal skin color. Normal skin turgor. Extremities: No lower extremity edema, no calf tenderness Neuro: Oriented X 3. Medications Administered Discontinued Medications Generic Name Dose Route Start Last Admin Trade Name Freq PRN Reason Stop Dose Admin Cefuroxime Axetil 500 mg 11/20/24 00:02 11/20/24 01:06 Cefuroxime Axetil 500 Mg Tablet PO 11/20/24 00:03 500 mg ONCE ONE Administration Medical Decision Making Medical Decision Making [facility] Narrative: Patient with tiffanie hematuria at home with clots? Urine here was cloudy showed WBCs and RBCs CT scan was negative for any kidney stone or bladder mass will prescribe patient cefuroxime for acute cystitis likely hemorrhagic Differential Diagnosis Differential Diagnoses: The differential diagnosis associated with the presentation includes Hemorrhagic cystitis/UTI/kidney stone/bladder mass Lab Data [facility] Lab Attestation statement: I reviewed the patient's lab results. 11/19/24 21:43 11/19/24 21:43 Labs: Lab Results 11/19/24 Range/Units 21:43 WBC 14.7 H (4.8-10.8) X10*3/uL RBC 4.30 (4.20-5.50) X10*6/uL Hgb 12.7 (12.0-16.0) g/dl Hct 36.8 L (37.0-47.0) % MCV 85.6 (80.0-98.0) fL MCH 29.5 (27.0-33.0) pg MCHC 34.5 (31.0-35.0) g/dl RDW 12.9 (11.0-16.0) % Plt Count 297 (160-400) X10*3/uL MPV 9.9 (9.4-12.3) fL Immature Gran % (Auto) 0.3 (0.0-0.4) % Neut % (Auto) 74.1 H (45-73) % Lymph % (Auto) 15.8 L (20-40) % Faulk % (Auto) 6.6 (2-11) % Eos % (Auto) 2.6 (0-4) % Baso % (Auto) 0.6 (0-2) % Lymph # (Auto) 2.3 (1.2-4.9) X10*3/uL Faulk # (Auto) 1.0 (0.1-1.2) X10*3/uL Eos # (Auto) 0.4 (0.0-0.4) X10*3/uL Baso # (Auto) 0.1 (0.0-0.2) X10*3/uL Abs Immat Gran (auto) 0.05 H (0.00-0.03) X10*3/uL Absolute Neuts (auto) 10.9 H (2.0-8.3) x10*3/uL Absolute Nucleated RBC 0.000 (0.0-0.012) X10*3/uL Nucleated RBC % (auto) 0.0 (0.0-0.2) /100WBC Sodium 140 (135-145) mmol/L Potassium 3.8 (3.3-5.1) mmol/L Chloride 106 (96-108) mmol/L Carbon Dioxide 25 (22-29) mmol/L Anion Gap 13 (12-20) BUN 17 H (9-16) mg/dL Creatinine 0.67 (0.5-1.4) mg/dL Estim Creat Clear Calc 106.8 Estimated GFR > 60 Random Glucose 85 (60-115) mg/dL Calcium 9.1 (8.4-10.2) mg/dL Total Bilirubin 0.7 (0.0-1.0) mg/dL AST 23 (5-31) U/L ALT 25 (0-31) U/L Alkaline Phosphatase 68 (39-117) U/L Total Protein 7.3 (6.5-8.0) g/dL Albumin 4.5 (3.5-5.0) g/dL Urine Color Yellow Urine Appearance Cloudy Urine pH 6.0 (5.0-9.0) Ur Specific Pindall 1.020 (1.005-1.025) Urine Protein 30 (1+) H (Neg-Trace) mg/dL Urine Glucose (UA) Negative (Negative) mg/dL Urine Ketones Negative (Negative) mg/dL Urine Blood Large (3+) H (Negative) Urine Nitrite Negative (Negative) Ur Leukocyte Esterase Large (3+) H (Negative) Urine RBC >20 H (0-2) /HPF Urine WBC >50 H (0-5) /HPF Ur Squamous Epith Cells 0-2 (0-2) /HPF Urine Bacteria None Seen (None Seen) Hyaline Casts 0-2 (0-2) /LPF Urine Test NEGATIVE (NEGATIVE) Independent Interpretation I performed an independent interpretation of an: CT Scan Radiology Impression Discussion of test interpretation with radiology: I have reviewed the radiologist's reading. Discharge Plan Discharge Clinical Impression: Cystitis Patient Disposition: Home, Self-Care Instructions: Urinary Tract Infection in Women (DC) Additional Instructions: Drink plenty of fluids Take antibiotic as prescribed Follow with your PCP as needed Prescriptions: New cefuroxime axetil 250 mg tablet 250 mg PO BID 7 Days Qty: 14 0RF phenazopyridine [Pyridium] 200 mg tablet 200 mg PO TID 2 Days Qty: 6 0RF No Action albuterol sulfate [Ventolin HFA] 90 mcg/actuation HFA aerosol inhaler inhalation ibuprofen 200 mg capsule 200 mg PO Q6H PRN ParaGard T 380A 380 square mm intrauterine device intrauterine Stand Alone Forms: Work/School Release Interventions: ED Discharge Assessment Last Done: 11/20/24 01:36 Discharge Date/Time: 11/20/24 01:37 Print Language: Indonesian
[2024-11-20 01:34] VITALS: BP 127/51; PULSE 92; RESP 16; TEMP 36.8; O2SAT 97
[2024-11-20 01:36] VITALS: BP 127/51; PULSE 92; RESP 16; TEMP 36.8; O2SAT 97
== END 2024-11-20 01:37 | disposition home or self-care (01) ==
PROVIDERS: Emergency Provider Internal Medicine
DX: N30.90 Cystitis, unspecified without hematuria (principal); B95.7 Other staphylococcus as the cause of diseases classified elsewhere
CPT/HCPCS: 36415; 74176; 80053; 81001; 81025; 85025; 87086; 87088; 87186; 99284

== ENCOUNTER → 2024-11-20 00:01 | Outpatient (BNV) | payer OTHER, SELFPAY | PROVIDERS: Emergency Provider Internal Medicine; Visit Provider Radiology Diagnostic Radiology | DX: R31.0 Gross hematuria (principal) | CPT/HCPCS: 74176 ==